=== PATIENT | female | born 1940 | race Caucasian/White ===

== ENCOUNTER 2019-07-15 12:31 | Inpatient (IN) | payer MEDICARE ==
[~2019-07-15] VITALS: Ht 157.5 cm; Wt 104.5 kg
[~2019-07-15 12:31] MED LIST: ASPI-1053 PO; CLON-527 PO; DOCU-20 PO; ENAL20TA75 PO; HYDR-4069 PO; HYDR-4353 PO; HYDR25TA4 PO; LANS30CA37 PO; LEVO125T PO; METO-395 PO; NITR0.4T51 SL; POTA10TA36 PO
[2019-07-15] MEDS ORDERED: nitroGLYCERIN 0.4mg/hour patch TD ONE (17:00)
[2019-07-15] MEDS ORDERED: aspirin 81mg tab.chew PO ONE (17:00)
[2019-07-15] MEDS ORDERED: diazepam inj 5 MG/ML inj. IV ONE (17:00)
[2019-07-15 17:23] LABS: BASOPHILS # (AUTO) 0.1 X10'3 (0-0.2); BASOPHILS % (AUTO) 0.6 % (0-1); EOSINOPHILS % (AUTO) 0.1 % (0-6); HEMATOCRIT 40.3 % (35.0-45.0); HEMOGLOBIN 12.9 g/dl (12.0-16.0); LYMPHOCYTES # (AUTO) 2.8 X10'3 (1.1-4.8); LYMPHOCYTES % (AUTO) 27.3 % (21-51); MEAN CORPUSCULAR HGB CONC 32.1 g/dL (33.0-36.5); MEAN CORPUSCULAR VOLUME 87.2 FL (78-98); MEAN PLATELET VOLUME 10.2 FL (7.4-10.4); MONOCYTES # (AUTO) 0.8 X10'3 (0-0.9); NEUTROPHILS # (AUTO) 6.5 X10'3 (1.8-7.7); PLATELET COUNT 294 X10'3 (140-440); RED BLOOD COUNT 4.62 X10'6 (4.20-5.60); RED CELL DISTRIBUTION WIDTH 17.6 % (11.5-14.5); WHITE BLOOD COUNT 10.2 X10'3 (4.5-11.0)
[2019-07-15 17:24] LABS: ALANINE AMINOTRANSFERASE 25 U/L (12-78); ALBUMIN 4.1 G/DL (3.4-5.0); ALKALINE PHOSPHATASE 78 IU/L (46-116); ANION GAP 12 (8-16); ASPARTATE AMINO TRANSFERASE 25 U/L (10-37); BILIRUBIN,TOTAL 0.8 MG/DL (0.1-1.0); CALCIUM 9.2 MG/DL (8.5-10.1); CHLORIDE 104 MMOL/L (99-107); GLUCOSE 115 MG/DL (70-104); POTASSIUM 3.5 MMOL/L (3.5-5.1); SODIUM 141 MMOL/L (135-145); TOTAL PROTEIN 8.1 G/DL (6.4-8.2)
[2019-07-15 17:33] LABS: BLOOD UREA NITROGEN 22 MG/DL (7-18)
[2019-07-15 17:44] LABS: CLARITY,URINE SLIGHTLY CLOUDY (Clear); COLOR,URINE YELLOW (Yellow); GLUCOSE, URINE NEGATIVE (Neg); KETONES,URINE NEGATIVE (Neg); LEUKOCYTE ESTERASE ,URINE NEGATIVE (Neg); NITRITES, URINE POSITIVE (Neg); OCCULT BLOOD,URINE TRACE-INTACT (Neg); PROTEIN,URINE TRACE mg/dl (Neg); UROBILINOGEN,URINE 0.2 E.U/dL (0.2-1.0)
[2019-07-15 17:52] LABS: UA COLLECTION TYPE CLN CATCH MIDSTREAM
[2019-07-15 17:58] LABS: BUN/CREATININE RATIO 16.8 (6.6-38.0); CREATININE 1.31 MG/DL (0.40-0.90); eGFR 39 ML/MIN
[2019-07-15 18:07] LABS: BACTERIA,URINE 4+ /HPF (Neg); RBC,URINE 0-2 /HPF (0-2); SQUAMOUS EPITHELIAL CELL,UR FEW /LPF (FEW); WBC,URINE 0-4 /HPF (0-4)
[2019-07-15] MEDS ORDERED: mag hydrox/Alum hydrox/simeth 30ml oral suspension PO PRN (19:35)
[2019-07-15] MEDS ORDERED: acetaminophen 325mg tablet PO PRN (19:35)
[2019-07-15] MEDS ORDERED: ondansetron/PF 4mg/2ml inj IV PRN (19:35)
[2019-07-15] MEDS ORDERED: nitroGLYCERIN 0.4mg SUBLingual tab SL PRN (19:35)
[2019-07-15] MEDS ORDERED: docusate sod 100mg capsule PO PRN (19:35)
[2019-07-15] MEDS ORDERED: magnesium hydroxide 30ml (MOM) UD suspension PO PRN (19:35)
[2019-07-15] MEDS ORDERED: amLODIPine 5mg tablet PO ONE (19:40)
--- NOTE | 2019-07-15 20:26 | NUR ---
I have received report from RONA Duvall and had the opportunity to ask questions and assume patient care. Addendum: 07/16/19 at 0100 by Mulu Garcia RN Report given by RONA Duvall states: Rachel Kebede is an 79y/o F, arrived from her primary care dr's office with complaints of Chest pain 5/10 that increased to 7/10, BP of 216/100 and Klonopin with drawl with tremors. she was given aspirin x4 doses which brought her chest pain to a 3/10, Troponin 0.14, EKG showed Normal Sinus Rhythm with PVCs. BP in ED was 170-190's. Pt is A&O X4.
--- NOTE | 2019-07-15 20:30 | NUR ---
Patient arrived to room 308 via gurney. Pt arrived with monitor attached. Pt arrived with all known belongings. Pt was attached to bedside monitor, BP was 205/61, HR 67, O2 Sat 95% on room air. Nitroglycerin patch in place to the right chest.
[2019-07-15] MEDS ORDERED: temazepam 15mg capsule PO PRN (21:00)
[2019-07-15] MEDS ORDERED: enalaprilat dihydrate 2.5mg/2ml vial IV ONE (21:00)
[2019-07-15] MEDS: clonazePAM 0.5mg tablet PO SCH (21:02)
[2019-07-15] MEDS: heparin, porcine 5000 units/ml vial SQ SCH (21:03)
[2019-07-15 21:16] LABS: MAGNESIUM 2.5 MG/DL (1.5-2.4)
[2019-07-15] MEDS ORDERED: potassium Cl 20 mEq SR tablet PO PRN ×2 (21:35)
[2019-07-15] MEDS ORDERED: magnesium Cl slow-release 64mg tablet PO PRN (21:35)
[2019-07-15] MEDS ORDERED: potassium CL 10mEq/100ml bag 100 ML IV PRN (21:35)
[2019-07-15 22:00] VITALS: BP 202/83
[2019-07-15 22:15] VITALS: BP 196/88
[2019-07-15] MEDS ORDERED: cloNIDine 0.1 mg tablet PO ONE (22:15)
[2019-07-16] VITALS (8 sets, daily range): BP systolic 131–205; BP diastolic 51–67
[2019-07-16] MEDS: HYDROcodone/acetaminophen 10/325mg tab PO PRN ×3 (00:17→17:55)
[2019-07-16] MEDS: hydrALAZINE 25 MG tablet PO SCH ×4 (00:17→23:09)
[2019-07-16 03:39] LABS: BASOPHILS # (AUTO) 0.1 X10'3 (0-0.2); EOSINOPHILS # (AUTO) 0.1 X10'3 (0-0.9); EOSINOPHILS % (AUTO) 0.6 % (0-6); HEMATOCRIT 38.1 % (35.0-45.0); HEMOGLOBIN 12.3 g/dl (12.0-16.0); LYMPHOCYTES # (AUTO) 3.4 X10'3 (1.1-4.8); LYMPHOCYTES % (AUTO) 29.7 % (21-51); MEAN CORPUSCULAR HGB CONC 32.2 g/dL (33.0-36.5); MEAN CORPUSCULAR VOLUME 86.8 FL (78-98); MEAN PLATELET VOLUME 9.2 FL (7.4-10.4); MONOCYTES % (AUTO) 8.7 % (2-12); NEUTROPHILS # (AUTO) 6.8 X10'3 (1.8-7.7); PLATELET COUNT 262 X10'3 (140-440); RED BLOOD COUNT 4.38 X10'6 (4.20-5.60); RED CELL DISTRIBUTION WIDTH 17.3 % (11.5-14.5); WHITE BLOOD COUNT 11.4 X10'3 (4.5-11.0)
[2019-07-16 03:52] LABS: ALANINE AMINOTRANSFERASE 26 U/L (12-78); ALBUMIN 3.6 G/DL (3.4-5.0); ALKALINE PHOSPHATASE 74 IU/L (46-116); ANION GAP 10 (8-16); ASPARTATE AMINO TRANSFERASE 26 U/L (10-37); BILIRUBIN,TOTAL 0.7 MG/DL (0.1-1.0); BLOOD UREA NITROGEN 24 MG/DL (7-18); BUN/CREATININE RATIO 18.8 (6.6-38.0); CALCIUM 8.9 MG/DL (8.5-10.1); CHLORIDE 104 MMOL/L (99-107); CREATININE 1.28 MG/DL (0.40-0.90); GLUCOSE 106 MG/DL (70-104); POTASSIUM 3.8 MMOL/L (3.5-5.1); SODIUM 141 MMOL/L (135-145); TOTAL CARBON DIOXIDE 26.9 MMOL/L (24-32); TOTAL PROTEIN 7.2 G/DL (6.4-8.2); eGFR 40 ML/MIN
[2019-07-16 03:56] LABS: MAGNESIUM 2.2 MG/DL (1.5-2.4); TROPONIN I 0.13 NG/ML (0.0-0.05)
--- NOTE | 2019-07-16 04:50 | NUR ---
Orienteer documentation: I have reviewed and agree with all interventions, assessments performed and documented by RONA Hardwick. [facility]eer Medication Administration: For this medication-pass time frame, all medication were reviewed, dispensed, administered and documented per hospital policy by RONA Hardwick.
--- NOTE | 2019-07-16 06:10 | NUR ---
Patient in room MED 308. I have received report from RONA Hardwick and had the opportunity to ask questions and assume patient care.
--- NOTE | 2019-07-16 06:43 | NUR ---
Problems reprioritized. Patient report given, questions answered & plan of care reviewed with Audra RN.
[2019-07-16] MEDS: clonazePAM 0.5mg tablet PO SCH (07:54)
[2019-07-16] MEDS: levoTHYROXINE 125mcg tablet PO SCH (07:54)
[2019-07-16] MEDS: metoprolol succinate 25mg (24-HOUR) SR. Tablet PO SCH ×3 (07:55→09:03)
[2019-07-16] MEDS: heparin, porcine 5000 units/ml vial SQ SCH ×2 (07:56→20:31)
--- NOTE | 2019-07-16 08:15 | NUR ---
Paged Dr. Florence "Regarding Mrs. Kebede RM 308: B/P 186/66 HR 55. Please call Fe at [phone]. Need order to tx." Spoke with Dr. Florence on phone, advised to wait and recheck BP and reevaluate patient. No new orders given. Addendum: 07/16/19 at 0838 by Fe Brunner RN Dr. Florence notified that metoprolol was held due to HR of 55.
--- NOTE | 2019-07-16 09:02 | NUR ---
Per [facility], decreased Metroplol parameter to hold for heart rate < 55
[2019-07-16] MEDS ORDERED: potassium Cl 20 mEq SR tablet PO PRN ×2 (09:10)
[2019-07-16] MEDS ORDERED: magnesium 4gm in 100ml NS 100 ML IV PRN (09:10)
[2019-07-16] MEDS ORDERED: potassium CL 10mEq/100ml bag 100 ML IV PRN (09:10)
[2019-07-16] MEDS ORDERED: magnesium Cl slow-release 64mg tablet PO PRN (09:10)
[2019-07-16] MEDS: CefTRIAXone/D5W-Rocephin 1gm 50 ML IV SCH (10:22)
[2019-07-16] MEDS: normal saline 1000ml 1,000 ML IV SCH (13:13)
--- NOTE | 2019-07-16 15:34 | NUR ---
Paged Dr. Will "RM 308 [place]: BP 196/74, pt is anxious with some tremors. Please advise. Fe ACCE [id number]"
[2019-07-16] MEDS ORDERED: hydrALAZINE 20mg/ml inj. IV ONE (16:25)
[2019-07-16] MEDS ORDERED: hydrALAZINE 20mg/ml inj. IV PRN (16:25)
[2019-07-16] MEDS ORDERED: losartan 50mg tablet PO ONE (16:25)
[2019-07-16] MEDS ORDERED: clonazePAM 1mg tablet PO ONE (17:25)
--- NOTE | 2019-07-16 18:00 | NUR ---
Called pharmacy regarding patient's prescribed dose of clonazepam. Per Dr. Will, continued patients prescription of 1mg clonazepam TID and one dose now.
--- NOTE | 2019-07-16 18:00 | NUR ---
Patient in room MED 308. I have received report from Fe REA and had the opportunity to ask questions and assume patient care.
--- NOTE | 2019-07-16 18:22 | NUR ---
Problems reprioritized. Patient report given, questions answered & plan of care reviewed with RONA Lau.
[2019-07-16] MEDS: lactobacillus rhamnosus 10,000 MMU CELLS/CAPSULE PO SCH (20:30)
[2019-07-16] MEDS: losartan 50mg tablet PO SCH (20:32)
[2019-07-16] MEDS ORDERED: amLODIPine 5mg tablet PO ONE (21:30)
[2019-07-16] MEDS: clonazePAM 1mg tablet PO SCH (23:08)
[2019-07-17] MEDS: normal saline 1000ml 1,000 ML IV SCH ×2 (01:30→14:50)
[2019-07-17 02:00] VITALS: BP 164/57
[2019-07-17 06:00] VITALS: BP 170/54
--- NOTE | 2019-07-17 06:00 | NUR ---
Problems reprioritized. Patient report given, questions answered & plan of care reviewed with Fe REA.
--- NOTE | 2019-07-17 06:05 | NUR ---
Patient in room MED 308. I have received report from RONA Lau and had the opportunity to ask questions and assume patient care.
[2019-07-17] MEDS: HYDROcodone/acetaminophen 10/325mg tab PO PRN ×3 (07:33→22:21)
[2019-07-17] MEDS: hydrALAZINE 25 MG tablet PO SCH ×2 (07:33→15:52)
[2019-07-17] MEDS: metoprolol succinate 25mg (24-HOUR) SR. Tablet PO SCH (07:33)
[2019-07-17] MEDS: clonazePAM 1mg tablet PO SCH ×3 (07:33→20:44)
[2019-07-17] MEDS: lactobacillus rhamnosus 10,000 MMU CELLS/CAPSULE PO SCH ×2 (07:34→20:44)
[2019-07-17] MEDS: levoTHYROXINE 125mcg tablet PO SCH (07:34)
[2019-07-17] MEDS: losartan 50mg tablet PO SCH ×2 (07:34→20:44)
[2019-07-17] MEDS: heparin, porcine 5000 units/ml vial SQ SCH ×2 (07:36→20:45)
[2019-07-17] MEDS: CefTRIAXone/D5W-Rocephin 1gm 50 ML IV SCH (07:42)
[2019-07-17] MEDS ORDERED: amLODIPine 5mg tablet PO SCH (08:00)
[2019-07-17 08:11] LABS: ALANINE AMINOTRANSFERASE 21 U/L (12-78); ALBUMIN 3.5 G/DL (3.4-5.0); ALBUMIN/GLOBULIN RATIO 0.9 (1.1-1.5); ALKALINE PHOSPHATASE 75 IU/L (46-116); ANION GAP 13 (8-16); ASPARTATE AMINO TRANSFERASE 25 U/L (10-37); BILIRUBIN,TOTAL 0.6 MG/DL (0.1-1.0); BLOOD UREA NITROGEN 22 MG/DL (7-18); BUN/CREATININE RATIO 19.1 (6.6-38.0); CALCIUM 8.1 MG/DL (8.5-10.1); CHLORIDE 106 MMOL/L (99-107); CREATININE 1.15 MG/DL (0.40-0.90); GLUCOSE 95 MG/DL (70-104); PHOSPHORUS 3.7 MG/DL (2.3-4.5); POTASSIUM 3.6 MMOL/L (3.5-5.1); SODIUM 142 MMOL/L (135-145); TOTAL PROTEIN 7.2 G/DL (6.4-8.2); eGFR 45 ML/MIN
[2019-07-17 08:23] LABS: BASOPHILS # (AUTO) 0.1 X10'3 (0-0.2); BASOPHILS % (AUTO) 1.3 % (0-1); EOSINOPHILS # (AUTO) 0.2 X10'3 (0-0.9); EOSINOPHILS % (AUTO) 2.1 % (0-6); HEMATOCRIT 39.2 % (35.0-45.0); LYMPHOCYTES # (AUTO) 2.8 X10'3 (1.1-4.8); LYMPHOCYTES % (AUTO) 27.8 % (21-51); MEAN CORPUSCULAR HEMOGLOBIN 28.8 PG (27.0-31.0); MEAN CORPUSCULAR HGB CONC 33.3 g/dL (33.0-36.5); MEAN CORPUSCULAR VOLUME 86.5 FL (78-98); MEAN PLATELET VOLUME 10.3 FL (7.4-10.4); MONOCYTES % (AUTO) 10.2 % (2-12); NEUTROPHILS % (AUTO) 58.6 % (42-75); PLATELET COUNT 292 X10'3 (140-440); RED BLOOD COUNT 4.53 X10'6 (4.20-5.60); RED CELL DISTRIBUTION WIDTH 17.8 % (11.5-14.5); WHITE BLOOD COUNT 10.2 X10'3 (4.5-11.0)
[2019-07-17 10:00] VITALS: BP 122/47
[2019-07-17] MEDS ORDERED: NOR5T PO (10:59)
[2019-07-17] MEDS ORDERED: CEFD300C3 PO (10:59)
[2019-07-17] MEDS ORDERED: LACT1CAP26 PO (10:59)
[2019-07-17] MEDS ORDERED: CLON-286 PO (10:59)
[2019-07-17] MEDS ORDERED: LOSA50TA64 PO (10:59)
[2019-07-17 14:00] VITALS: BP 164/51
[2019-07-17] MEDS ORDERED: amLODIPine 5mg tablet PO ONE (15:35)
--- NOTE | 2019-07-17 17:41 | NUR ---
Orienteer documentation: I have reviewed and agree with all interventions, assessments performed and documented by Fe REA.
[2019-07-17 18:00] VITALS: BP 156/51
--- NOTE | 2019-07-17 18:00 | NUR ---
Patient in room MED 308. I have received report from Fe REA and had the opportunity to ask questions and assume patient care.
--- NOTE | 2019-07-17 18:13 | NUR ---
Problems reprioritized. Patient report given, questions answered & plan of care reviewed with RONA Lau.
[2019-07-17 22:00] VITALS: BP 141/64
[2019-07-18 02:00] VITALS: BP 145/58
[2019-07-18] MEDS: hydrALAZINE 25 MG tablet PO SCH ×2 (02:12→07:30)
[2019-07-18 02:20] VITALS: BP 145/58
[2019-07-18 06:00] VITALS: BP 153/52
--- NOTE | 2019-07-18 06:35 | NUR ---
I have received report from Judi REA and had the opportunity to ask questions and assume patient care.
[2019-07-18 07:26] LABS: BASOPHILS # (AUTO) 0.2 X10'3 (0-0.2); BASOPHILS % (AUTO) 1.7 % (0-1); EOSINOPHILS # (AUTO) 0.3 X10'3 (0-0.9); EOSINOPHILS % (AUTO) 3.6 % (0-6); HEMATOCRIT 38.3 % (35.0-45.0); HEMOGLOBIN 12.4 g/dl (12.0-16.0); LYMPHOCYTES # (AUTO) 2.8 X10'3 (1.1-4.8); LYMPHOCYTES % (AUTO) 30.8 % (21-51); MEAN CORPUSCULAR HGB CONC 32.4 g/dL (33.0-36.5); MEAN CORPUSCULAR VOLUME 86.4 FL (78-98); MEAN PLATELET VOLUME 9.9 FL (7.4-10.4); MONOCYTES # (AUTO) 0.9 X10'3 (0-0.9); MONOCYTES % (AUTO) 10.3 % (2-12); NEUTROPHILS # (AUTO) 4.9 X10'3 (1.8-7.7); NEUTROPHILS % (AUTO) 53.6 % (42-75); PLATELET COUNT 264 X10'3 (140-440); RED BLOOD COUNT 4.43 X10'6 (4.20-5.60); RED CELL DISTRIBUTION WIDTH 17.2 % (11.5-14.5); WHITE BLOOD COUNT 9.1 X10'3 (4.5-11.0)
[2019-07-18] MEDS: CefTRIAXone/D5W-Rocephin 1gm 50 ML IV SCH (07:29)
[2019-07-18] MEDS: clonazePAM 1mg tablet PO SCH (07:30)
[2019-07-18] MEDS: levoTHYROXINE 125mcg tablet PO SCH (07:30)
[2019-07-18] MEDS: metoprolol succinate 25mg (24-HOUR) SR. Tablet PO SCH (07:30)
[2019-07-18] MEDS: lactobacillus rhamnosus 10,000 MMU CELLS/CAPSULE PO SCH (07:30)
[2019-07-18] MEDS: losartan 50mg tablet PO SCH (07:30)
[2019-07-18 07:38] LABS: ALANINE AMINOTRANSFERASE 27 U/L (12-78); ALBUMIN 3.4 G/DL (3.4-5.0); ALBUMIN/GLOBULIN RATIO 0.9 (1.1-1.5); ALKALINE PHOSPHATASE 75 IU/L (46-116); ANION GAP 10 (8-16); ASPARTATE AMINO TRANSFERASE 27 U/L (10-37); BILIRUBIN,TOTAL 0.4 MG/DL (0.1-1.0); BLOOD UREA NITROGEN 21 MG/DL (7-18); BUN/CREATININE RATIO 17.8 (6.6-38.0); CALCIUM 8.1 MG/DL (8.5-10.1); CHLORIDE 108 MMOL/L (99-107); CREATININE 1.18 MG/DL (0.40-0.90); GLUCOSE 94 MG/DL (70-104); MAGNESIUM 2.3 MG/DL (1.5-2.4); PHOSPHORUS 3.9 MG/DL (2.3-4.5); POTASSIUM 3.9 MMOL/L (3.5-5.1); SODIUM 143 MMOL/L (135-145); TOTAL CARBON DIOXIDE 25.4 MMOL/L (24-32); eGFR 44 ML/MIN
[2019-07-18] MEDS: heparin, porcine 5000 units/ml vial SQ SCH (07:46)
[2019-07-18] MEDS ORDERED: amLODIPine 5mg tablet PO SCH (08:00)
[2019-07-18] MEDS ORDERED: HYDR-4069 PO (10:33)
[2019-07-18] MEDS: HYDROcodone/acetaminophen 10/325mg tab PO PRN (10:41)
[2019-07-18 11:00] VITALS: BP 147/52
[2019-07-18] MEDS ORDERED: NOR5T PO (12:16)
--- NOTE | 2019-07-18 12:36 | NUR ---
PAGED CASE MANAGEMENT FOR HOME HEALTH "PT IN [address] IS GOING HOME. WANTS HOME HEALTH FOR HER, CAN YOU CALL AND LET ME KNOW? THANK YOU, HECTOR [phone]"
== END 2019-07-18 13:22 | disposition home health service (06) | DRG 281 ==
LOC: ER 12:32 → MED 3N 20:24
PROVIDERS: ADMIT Internal Medicine; ATTEND Family Medicine
DX: I16.1 Hypertensive emergency (principal); I21.A1 Myocardial infarction type 2; N39.0 Urinary tract infection, site not specified; I10 Essential (primary) hypertension; I25.10 Atherosclerotic heart disease of native coronary artery without angina pectoris; G47.30 Sleep apnea, unspecified; E78.5 Hyperlipidemia, unspecified; E11.9 Type 2 diabetes mellitus without complications; M79.7 Fibromyalgia; F41.9 Anxiety disorder, unspecified; F32.9 Major depressive disorder, single episode, unspecified; E03.9 Hypothyroidism, unspecified; G89.29 Other chronic pain; M81.0 Age-related osteoporosis without current pathological fracture; J44.9 Chronic obstructive pulmonary disease, unspecified; Z87.891 Personal history of nicotine dependence; I25.2 Old myocardial infarction; Z90.710 Acquired absence of both cervix and uterus; Z85.038 Personal history of other malignant neoplasm of large intestine; Z79.890 Hormone replacement therapy; Z79.899 Other long term (current) drug therapy; Z88.8 Allergy status to other drugs, medicaments and biological substances
CPT/HCPCS: 36415; 71045; 80053; 81001; 82948; 83735; 84100; 84443; 84484; 85025; 87077; 87081; 87088; 87186; 93005; 96374; 99285; G0378; J0360; J0696; J1644; J3360; J7030

== ENCOUNTER 2022-03-24 07:44 | Emergency (ER) | payer MEDICARE ==
[~2022-03-24] VITALS: Ht 160 cm; Wt 107.7 kg
[~2022-03-24 07:44] MED LIST changes: -ASPI-1053 PO; -CLON-527 PO; +CLON1TAB60 PO; -DOCU-20 PO; +DOCU-348 PO; -ENAL20TA75 PO; -HYDR25TA4 PO; +LACT1CAP26 PO; -LANS30CA37 PO; +LOSA50TA64 PO; +NOR5T PO; -POTA10TA36 PO
[2022-03-24 08:30] LABS: BASOPHILS # (AUTO) 0.1 X10'3 (0-0.2); BASOPHILS % (AUTO) 1.1 % (0-1); EOSINOPHILS # (AUTO) 0.1 X10'3 (0-0.9); EOSINOPHILS % (AUTO) 1.6 % (0-6); HEMATOCRIT 32.9 % (35.0-45.0); HEMOGLOBIN 10.6 g/dl (12.0-16.0); LYMPHOCYTES # (AUTO) 2.5 X10'3 (1.1-4.8); LYMPHOCYTES % (AUTO) 29.9 % (21-51); MEAN CORPUSCULAR HEMOGLOBIN 25.9 PG (27.0-31.0); MEAN CORPUSCULAR HGB CONC 32.1 g/dL (33.0-36.5); MEAN CORPUSCULAR VOLUME 80.5 FL (78-98); MEAN PLATELET VOLUME 8.6 FL (7.4-10.4); MONOCYTES # (AUTO) 0.7 X10'3 (0-0.9); MONOCYTES % (AUTO) 8.7 % (2-12); NEUTROPHILS # (AUTO) 4.8 X10'3 (1.8-7.7); NEUTROPHILS % (AUTO) 58.7 % (42-75); PLATELET COUNT 338 X10'3 (140-440); RED BLOOD COUNT 4.09 X10'6 (4.20-5.60); RED CELL DISTRIBUTION WIDTH 21.2 % (11.5-14.5); WHITE BLOOD COUNT 8.2 X10'3 (4.5-11.0)
[2022-03-24 08:43] LABS: ALANINE AMINOTRANSFERASE 20 U/L (12-78); ALBUMIN 3.9 G/DL (3.4-5.0); ALKALINE PHOSPHATASE 64 IU/L (46-116); ANION GAP 11 (8-16); ASPARTATE AMINO TRANSFERASE 22 U/L (10-37); BILIRUBIN,TOTAL 0.7 MG/DL (0.1-1.0); BLOOD UREA NITROGEN 20 MG/DL (7-18); BUN/CREATININE RATIO 14.8 (6.6-38.0); CALCIUM 9.1 MG/DL (8.5-10.1); CHLORIDE 103 MMOL/L (99-107); CREATININE 1.35 MG/DL (0.40-0.90); GLUCOSE 108 MG/DL (70-104); POTASSIUM 4.4 MMOL/L (3.5-5.1); SODIUM 138 MMOL/L (135-145); TOTAL CARBON DIOXIDE 24.2 MMOL/L (24-32); TOTAL PROTEIN 7.8 G/DL (6.4-8.2); eGFR 37 ML/MIN
[2022-03-24] MEDS ORDERED: normal saline 1000ML IV soln IVB ONE (09:05)
[2022-03-24 09:10] LABS: ANISOCYTOSIS 3+; HYPOCHROMASIA 1+; PLATELET ESTIMATE NORMAL; POLYCHROMASIA FEW
[2022-03-24 09:11] LABS: ELLIPTOCYTES 1+; STOMATOCYTES FEW; TEAR DROP CELLS FEW
[2022-03-24 09:14] LABS: APTT 24 SECONDS (22-32)
[2022-03-24 10:13] LABS: COLOR,URINE YELLOW (Yellow); GLUCOSE, URINE NEGATIVE (Neg); KETONES,URINE NEGATIVE (Neg); LEUKOCYTE ESTERASE ,URINE SMALL (Neg); NITRITES, URINE NEGATIVE (Neg); OCCULT BLOOD,URINE NEGATIVE (Neg); PROTEIN,URINE NEGATIVE (Neg); UROBILINOGEN,URINE 0.2 E.U/dL (0.2-1.0)
[2022-03-24 10:15] LABS: CLARITY,URINE SLIGHTLY CLOUDY (Clear); UA COLLECTION TYPE CLN CATCH MIDSTREAM
[2022-03-24 10:22] LABS: RBC,URINE NONE SEEN /HPF (0-2); SQUAMOUS EPITHELIAL CELL,UR MODERATE /LPF (FEW)
[2022-03-24 10:23] LABS: BACTERIA,URINE FEW /HPF (Neg); TRANSITIONAL EPI CELLS,URINE FEW /HPF
--- NOTE | 2022-03-24 10:41 | NUR ---
ATTEMPT TO START IV X 3 WITHOUT SUCCESS. PATIENT REFUSES TO BE STUCK AGAIN AND IS UPSET BECAUSE PREVIOUS ATTEMPT LEFT A BRUISE ON HER ARM. ER MD WILL BE NOTIFIED.
[2022-03-24 12:36] VITALS: BP 200/97
== END 2022-03-24 12:39 | disposition home or self-care (01) ==
LOC: ER 07:45
DX: D64.9 Anemia, unspecified (principal); R53.1 Weakness; I10 Essential (primary) hypertension; I25.2 Old myocardial infarction; J44.9 Chronic obstructive pulmonary disease, unspecified; G47.30 Sleep apnea, unspecified; G89.29 Other chronic pain; M79.7 Fibromyalgia; Z90.49 Acquired absence of other specified parts of digestive tract; Z90.710 Acquired absence of both cervix and uterus; Z98.51 Tubal ligation status; Z88.8 Allergy status to other drugs, medicaments and biological substances; Z79.899 Other long term (current) drug therapy
CPT/HCPCS: 36415; 71045; 80053; 81001; 85008; 85025; 85610; 85730; 86885; 86900; 86901; 87088; 93005; 99285; J7030

== ENCOUNTER 2022-09-12 14:06 | Emergency (ER) | payer MEDICARE ==
[~2022-09-12] VITALS: Ht 154.9 cm; Wt 100.0 kg
[2022-09-12] MEDS ORDERED: morphine 4 MG/ML inj SYRINge IV ONE ×3 (14:40→15:55)
--- NOTE | 2022-09-12 15:05 | NUR ---
Pt fell off her front porch on to her left shoulder.
[2022-09-12 15:16] LABS: BASOPHILS # (AUTO) 0.1 X10'3 (0-0.2); BASOPHILS % (AUTO) 0.8 % (0-1); EOSINOPHILS # (AUTO) 0.3 X10'3 (0-0.9); EOSINOPHILS % (AUTO) 3.2 % (0-6); HEMATOCRIT 32.4 % (35.0-45.0); HEMOGLOBIN 10.8 g/dl (12.0-16.0); LYMPHOCYTES # (AUTO) 2.2 X10'3 (1.1-4.8); LYMPHOCYTES % (AUTO) 21.1 % (21-51); MEAN CORPUSCULAR HEMOGLOBIN 29.4 PG (27.0-31.0); MEAN CORPUSCULAR HGB CONC 33.3 g/dL (33.0-36.5); MEAN CORPUSCULAR VOLUME 88.1 FL (78-98); MONOCYTES # (AUTO) 0.8 X10'3 (0-0.9); MONOCYTES % (AUTO) 7.6 % (2-12); NEUTROPHILS # (AUTO) 7.1 X10'3 (1.8-7.7); NEUTROPHILS % (AUTO) 67.3 % (42-75); PLATELET COUNT 275 X10'3 (140-440); RED BLOOD COUNT 3.68 X10'6 (4.20-5.60); RED CELL DISTRIBUTION WIDTH 16.4 % (11.5-14.5); WHITE BLOOD COUNT 10.5 X10'3 (4.5-11.0)
[2022-09-12] MEDS ORDERED: HYDR-3965 PO (15:16)
[2022-09-12 15:38] LABS: ALANINE AMINOTRANSFERASE 21 U/L (12-78); ALBUMIN 3.7 G/DL (3.4-5.0); ALBUMIN/GLOBULIN RATIO 0.9 (1.1-1.5); ALKALINE PHOSPHATASE 64 IU/L (46-116); ANION GAP 12 (8-16); ASPARTATE AMINO TRANSFERASE 21 U/L (10-37); BILIRUBIN,TOTAL 0.4 MG/DL (0.1-1.0); BLOOD UREA NITROGEN 30 MG/DL (7-18); BUN/CREATININE RATIO 22.7 (6.6-38.0); CALCIUM 9.2 MG/DL (8.5-10.1); CHLORIDE 107 MMOL/L (99-107); CREATININE 1.32 MG/DL (0.40-0.90); GLUCOSE 134 MG/DL (70-104); POTASSIUM 3.8 MMOL/L (3.5-5.1); SODIUM 144 MMOL/L (135-145); TOTAL CARBON DIOXIDE 24.7 MMOL/L (24-32); TOTAL PROTEIN 7.6 G/DL (6.4-8.2); eGFR 38 ML/MIN
[2022-09-12 16:39] VITALS: BP 155/99
== END 2022-09-12 16:41 | disposition home or self-care (01) ==
LOC: ER 14:06
DX: S42.392A Other fracture of shaft of left humerus, initial encounter for closed fracture (principal); I10 Essential (primary) hypertension; J44.9 Chronic obstructive pulmonary disease, unspecified; G89.29 Other chronic pain; M54.9 Dorsalgia, unspecified; Z79.899 Other long term (current) drug therapy; Z88.8 Allergy status to other drugs, medicaments and biological substances; W18.39XA Other fall on same level, initial encounter; Y93.89 Activity, other specified; Y92.89 Other specified places as the place of occurrence of the external cause; Y99.8 Other external cause status
CPT/HCPCS: 36415; 73030; 80053; 85025; 96374; 96376; 99284; J2270